=== PATIENT | male | born 1960 | race Caucasian/White ===

== ENCOUNTER 2021-01-30 09:21 | Outpatient (CLI) | payer OTHER, SELFPAY ==
[2021-01-30 10:06] LABS: Hemoglobin A1C 9.1 % (<5.7)
[2021-01-30 10:28] LABS: Prostate Specific Antigen 0.6 ng/mL (< OR = 4.0)
[2021-02-05 09:08] LABS: Testosterone Free 74.9 pg/mL (35.0-155.0); Testosterone Total 262 ng/dL (250-1100)
== END 2021-01-30 09:22 | disposition home or self-care (01) ==
PROVIDERS: PCP Family Medicine; Visit Provider Nurse Practitioner Family
DX: Z12.5 Encounter for screening for malignant neoplasm of prostate (principal); R73.09 Other abnormal glucose; E34.9 Endocrine disorder, unspecified
CPT/HCPCS: 36415; 83036; 84153; 84402; 84403

== ENCOUNTER 2022-03-09 09:16 | Outpatient (CLI) | payer OTHER, SELFPAY ==
[2022-03-09 10:05] LABS: Hematocrit 43.7 % (42.0-52.0); Hemoglobin 14.8 g/dL (14.0-18.0); Mean Corpuscular HGB Conc 33.9 g/dl (32-36); Mean Corpuscular Hemoglobin 29.5 pg (26-34); Mean Corpuscular Volume 87.1 fl (80-100); Platelet Count Result 158 k/mm3 (150-375); Red Blood Count 5.02 M/mm3 (4.6-6.20); Red Cell Distribution Width 12.9 % (11.5-14.5); White Blood Count 5.4 K/mm3 (4.5-10.0)
[2022-03-09 10:18] LABS: Hemoglobin A1C 7.7 % (<5.7)
[2022-03-09 10:19] LABS: Alanine Aminotransferase 44 U/L (6-50); Albumin Level 4.5 g/dL (3.5-5.1); Alkaline Phosphatase 68 U/L (38-126); Anion Gap 10 mmol/L (8-16); Aspartate Amino Transferase 30 U/L (17-59); Bilirubin,Total 0.8 mg/dL (0.2-1.3); Blood Urea Nitrogen 13 mg/dL (9-20); Calcium 9.6 mg/dL (8.4-10.2); Carbon Dioxide 25 mmol/L (22-30); Chloride 101 mmol/L (98-107); Cholesterol 154 mg/dL (0-200); Estimated Glomerular Filt Rate > 60; Glucose 170 mg/dL (65-110); HDL Direct 33 mg/dL; Potassium 4.1 mmol/L (3.4-5.0); Sodium 136 mmol/L (137-145); Triglycerides 375 mg/dL (<150)
[2022-03-09 10:30] LABS: LDL Cholesterol Direct 54 mg/dL
[2022-03-09 10:51] LABS: Prostate Specific Antigen 0.5 ng/mL (< OR = 4.0)
== END 2022-03-09 09:17 | disposition home or self-care (01) ==
PROVIDERS: PCP Family Medicine; Visit Provider Nurse Practitioner Family
DX: E11.9 Type 2 diabetes mellitus without complications (principal); Z12.5 Encounter for screening for malignant neoplasm of prostate; Z13.29 Encounter for screening for other suspected endocrine disorder; E78.5 Hyperlipidemia, unspecified
CPT/HCPCS: 36415; 80053; 80061; 83036; 84153; 84443; 85027; G0103

== ENCOUNTER 2025-02-15 14:01 | Outpatient (CLI) | payer OTHER, SELFPAY ==
--- OUTSIDE RECORDS SUMMARY | 2025-02-15 14:18 | XMS_ITS | Encounter Summary ---
Author Organization [facility] Address [address] [place] [address] Care Team Providers Care In Classroom Tutor Name Role Phone Gonzalez Kumar MD Unavailable [phone] Renetta Franco NP Primary Care Provider [phone] Encounter Details Date Type Department Care Team (Late st Contact Info) Description 03/12/2022 Abstract [facility] [address] Justina Crowell MA Social History Tobacco Use Types Packs/Day Years Used Date Smoking Tobacco: Never Smokeless Tobacco: Never Alcohol Use Standard Drinks/Week Comments Yes 0 (1 standard drink = 0.6 oz pur e alcohol) occas. AUDIT-C Answer Date Recorded Frequency of Alcohol Consumption Monthly or less 09/14/2019 Average Number of Drinks 1 or 2 020 Frequency of Binge Drinking Never 09/02 PHQ-2 Answer Date Recorded PHQ-2 Score - If the patient scores above 3, please move on to questions 3-9 0 03/13/2021 Sex and Gender Information Value Date Recorded Sex Assigned at Male 09/14/2019 4:17 PM WILDERNESS GUIDE Legal Sex Male 9:27 AM CDT Gender Identity Male 09/14/2019 4:17 PM WILDERNESS GUIDE Sexual Orientation Straight 09/14/2019 4: 17 PM WILDERNESS GUIDE documented as of this encounter Plan of Treatment Upcoming Encounters Date Type Department Care Team (Late st Contact Info) Description 11/09/2025 10:15 AM CDT Office Visit [facility] [address] [place] [phone] Eric Goss MD Three [facility]. [facility] [address] [place] [address] documented as of this encounter Procedures Procedure Name Priority Date/Time Associated Diagnosis Comments COMPREHENSIVE METABOLIC PANEL Routine 11/01/2024 LIPID PANEL Routine 11/01/2024 CBC, MANUAL DIFF Routine 11/01/2024 THYROID STIM HORMONE TSH Routine 11/01/2024 CBC (OUTSIDE LAB) Routine 03/09/2022 COMPREHENSIVE METABOLIC PANEL Routine 03/09/2022 LIPID PANEL Routine 03/09/2022 HEMOGLOBIN, GLYCOSYLATED Routine 03/09/2022 THYROID STIM HORMONE TSH Routine 03/09/2022 documented in this encounter Results * COMPREHENSIVE METABOLIC PANEL (11/01/2024) Pathologist [facility] SODIUM S/P/B 138 GLUCOSE 130 mg/dL AST 21 BUN 19 CREATININE S/P/B 0.93 0.7 - 1.3 CALCIUM S/P/B 10.0 POTASSIUM S/P/B 4.2 CHLORIDE S/P/B 104 ALT 38 GFR ESTIMATE 92 us Default History Genericprovider LABORATORY Edited Result - Final * LIPID PANEL (11/01/2024) Pathologist [facility] CHOLESTEROL 163 TRIGLYCERIDES 586 HDL 33 NON HDL CHOLESTEROL 130 us Default History Genericprovider LABORATORY Edited Result - Final * CBC, MANUAL DIFF (11/01/2024) Pathologist [facility] WBC 6.0 HGB 15.6 HCT 46.6 PLT 193 us Default History Genericprovider LABORATORY Edited Result - Final * THYROID STIM HORMONE TSH (11/01/2024) TSH 4.31 Default History Genericprovider LABORATORY Edited Result - Final * HEMOGLOBIN, GLYCOSYLATED (03/09/2022) Pathologist [facility] HGB A1C 7.7 % 03/09/2022 us Doc [facility] LABORATORY Final Result * CBC (OUTSIDE LAB) (03/09/2022) Pathologist [facility] WBC 5.4 HGB 14.8 HCT 43.7 PLT 158 03/09/2022 us Doc [facility] Abstract LAB-OUTSIDE/ABSTRACTED Final Result * THYROID STIM HORMONE, TSH (03/09/2022) Pathologist [facility] TSH 2.450 03/09/2022 us Doc [facility] LABORATORY Edited Resul t - Final * LIPID PANEL (03/09/2022) Pathologist [facility] CHOLESTEROL 154 HDL 33 TRIGLYCERIDES 375 DIRECT LDL 54 03/09/2022 us Doc [facility] LABORATORY Final Result * COMPREHENSIVE METABOLIC PANEL (03/09/2022) Pathologist [facility] SODIUM S/P/B 136 POTASSIUM S/P/B 4.1 CO2 25 CHLORIDE S/P/B 101 GLUCOSE 170 mg/dL CALCIUM S/P/B 9.6 BUN 13 CREATININE S/P/B 1.0 0.7 - 1.3 EGFR NON-AFR. AMER. >60 <=90 ALKALINE PHOSPHATASE S/P/B 68 ALT 44 AST 30 BILIRUBIN TOTAL S/P/B 0.8 ALBUMIN S/P/B 4.5 3.5 - 5.0 TOTAL PROTEIN S/P/B 7.0 03/09/2022 us Doc [facility] LABORATORY Edited Resul t - Final documented in this encounter Visit Diagnoses Not on filedocumented in this encounter Additional Health Concerns Assessment Noted Time PHQ-9 Depression Total Score: 0 03/13/20 21 10:55 AM CDT documented as of this encounter Care Teams In Classroom Tutor Relationship Specialty Start Date End Date Renetta Franco NP [address] [place] [address] PCP - General NURSE PRACTITIONER 02/11/21 Gonzalez Kumar MD [address] [address] [place] [employer] Gaming Worker CARDIOVASCULAR DISEASE 08/02/16 documented as of this encounter
--- OUTSIDE RECORDS SUMMARY | 2025-02-15 14:18 | XMS_ITS | Encounter Summary ---
Author Organization [facility] Address [address] [place] [address] Care Team Providers Care Youth Leader Name Role Phone Gonzalez Kumar MD Unavailable [phone] Renetta Franco NP Primary Care Provider [phone] Encounter Details Date Type Department Care Team (Late st Contact Info) Description 03/18/2021 Hospital Orders Only [facility] Scale [place], [place] [id number] Eric Goss MD Three [facility]. [facility] [address] [place], [place] [id number] Social History Tobacco Use Types Packs/Day Years Used Date Smoking Tobacco: Never Smokeless Tobacco: Never Alcohol Use Standard Drinks/Week Comments Yes 0 (1 standard drink = 0.6 oz pur e alcohol) AUDIT-C Answer Date Recorded Frequency of Alcohol Consumption Monthly or less 09/14/2019 Average Number of Drinks 1 or 2 020 Frequency of Binge Drinking Never 09/02 PHQ-2 Answer Date Recorded PHQ-2 Score - If the patient scores above 3, please move on to questions 3-9 0 03/13/2021 Sex and Gender Information Value Date Recorded Sex Assigned at Male 09/14/2019 4:17 PM FOOD PREPARER Legal Sex Male 9:27 AM CDT Gender Identity Male 09/14/2019 4:17 PM FOOD PREPARER Sexual Orientation Straight 09/14/2019 4: 17 PM FOOD PREPARER COVID-19 Exposure Response Date Recorded In the last month, have you been in contact with someone who was confirmed or suspected to have Coronavirus / COVID-19? No / Unsure 03/19/2021 8:18 AM CDT documented as of this encounter Functional Status * Calculated C-SSRS Risk Score (Lifetime/Recent) Answer Date of Assessment Author Status No Risk Indicated 03/19/2021 9:15 AM CDT Pilo Bullock Active * Braxton Suicide Severity Rating Scale (Screener/Recent Self-Report) Question Answer Date of Assessment Author Status 1. Wish to be (Past 1 Month) No 03/19/2021 9:15 AM CDT Dinh Bullock Active 2. Non-Specific Active Suicidal Thoughts (Past 1 Month) No 03/19/2021 9:15 AM CDT Dinh Bullock Active 6. Suicidal Behavior (Lifetime) No 03/19/2021 9:15 AM CDT Dinh Bullock Active documented as of this encounter Plan of Treatment Upcoming Encounters Date Type Department Care Team (Late st Contact Info) Description 11/09/2025 10:15 AM CDT Office Visit [facility] [address] [place] [phone] Eric Goss MD [facility]. [facility] [address] [place], [place] [phone] documented as of this encounter Visit Diagnoses Not on filedocumented in this encounter Additional Health Concerns Assessment Noted Time PHQ-9 Depression Total Score: 0 03/13/20 21 10:55 AM CDT documented as of this encounter Care Teams Youth Leader Relationship Specialty Start Date End Date Renetta Franco NP [address] [address] PCP - General NURSE PRACTITIONER 02/11/21 Gonzalez Kumar MD Three [facility]. [facility] [address] [place], [place] [id number] Sourav Harness Repairer CARDIOVASCULAR DISEASE 08/02/16 documented as of this encounter
--- OUTSIDE RECORDS SUMMARY | 2025-02-15 14:18 | XMS_ITS | Clinical Summary ---
Author Organization [facility] Address [facility] [place] [address] Care Team Providers Care Maid Cleaning Cooking Name Role Phone Gonzalez Kumar MD Unavailable [phone] Renetta Franco NP Primary Care Provider [phone] Allergies No known active allergies Medications metFORMIN ER 500 MG 24 hr tablet Take 1 tablet (500 mg total) by mouth 2 (two) times a day. Active aspirin EC (ECOTRIN) 81 MG tablet Take 1 tablet (81 mg total) by mouth daily. Active JARDIANCE 25 MG tablet Take 1 tablet (25 mg total) by mouth daily. 3 Active ketoconazole (NIZORAL) 2 % shampoo Apply topically twice a week. 4 Active sildenafil (REVATIO) 20 MG tablet TAKE ONE TABLET BY MOUTH ONCE DAILY NEEDED 10 tablet 3 4 Active atorvastatin (LIPITOR) 80 MG tablet Take 1 tablet (80 mg total) by mouth nightly at bedtime. 90 tablet 3 5 Active Active Problems Problem Noted Date Diagnosed Date Type 2 diabetes mellitus wit hout complication, with long-term current use of insulin ([facility]) 11/03/2024 Assessment & Plan (11/03/2024 12:10 PM CDT): Recent A1c 7.2. He is currently on metformin and Jardiance. Encourage continued glycemic control as diabetes is a cardiovascular disease risk factor. Primary hypertension 03/26/2023 Assessment & Plan (11/03/2024 12:08 PM CDT): Blood pressure is well-controlled in office. He is not currently on any antihypertensive therapy at this time. Previously on beta-karen therapy, although stopped secondary to erectile dysfunction. Assessment & Plan (10/29/2023 3:40 PM CDT): His blood pressure is well-controlled and he is currently not on antihypertensive therapy. Continue to monitor. Erectile dysfunction due to arterial insufficien cy 09/18/2022 Assessment & Plan (10/29/2023 3:40 PM CDT): He has been having some erectile dysfunction. Phosphodiesterase inhibitors have not helped. I asked him to try sildenafil 40 mg as needed or have him consider urology consult. Assessment & Plan (09/18/2022 10:58 AM DISK AND TAPE MACHINE TENDER): He has been having some erectile dysfunction. I have asked him to stop beta- karen therapy to see if that improves his symptoms. If it does not, I have prescribed him phosphodiesterase inhibitors. I educated him that he should not use nitrates in addition to phosphodiesterase inhibitors. Coronary artery disease involving grayling coronar y artery 03/27/2021 Assessment & Plan (11/03/2024 12:07 PM CDT): He is not having angina. He is status post PCI to LAD. Continue medical management with aspirin and atorvastatin. Assessment & Plan (10/29/2023 3:39 PM CDT): He is not having angina. He is status post PCI to LAD. I told him he can stop clopidogrel. Continue aspirin, atorvastatin. Beta-karen therapy was stopped secondary to erectile dysfunction. Assessment & Plan (09/18/2022 10:57 AM DISK AND TAPE MACHINE TENDER): He is not having angina. He is status post PCI to LAD. Continue dual antiplatelet therapy. Assessment & Plan (03/20/2022 11:44 AM CDT): Coronary artery disease. Stable and asymptomatic. Discussed with the patient the importance of risk factor modification including regular moderate exercise and diet. Continue asa and plavix, atorva, and metoprolol Assessment & Plan (09/19/2021 10:18 AM DISK AND TAPE MACHINE TENDER): Assessment: He is not having angina Plan: : Diagnostic Testing: none Antiplatelet therapy: continue Plavix Aspirin Dose: 81mg Antianginal medications: continue metoprolol Lipid lowering medications: continue atorvastatin Lifestyle modifications: continue current medications and continue current healthy lifestyle patterns Assessment & Plan (03/27/2021 3:36 PM CDT): [facility] 03/19/21 1. 99% stenosis in proximal LAD 2. Successful PCI to LAD with Biotronik Orsiro 3.5 x 26 mm drug eluting stent 3. 80% stenosis in right coronary artery 4. Normal left ventricular function TTE ordered to assess LVEF Continue with MMT = ASA 81 plavix 75mg daily and atorvastatin 80mg daily Mixed hyperlipidemia 03/27/2021 Assessment & Plan (11/03/2024 12:09 PM CDT): Most recent lipid panel shows elevated triglycerides, uncontrolled with total cholesterol. LDL unable to be calculated due to triglyceride level. Continue current regimen with atorvastatin. He is no longer on fenofibrate. Assessment & Plan (10/29/2023 3:39 PM CDT): Most recent lipid panel shows elevated triglycerides, but controlled LDL. Recent trial data suggest that there may not be added benefit to lowering triglycerides. I am fine with him stopping triglyceride and continuing statin therapy. Assessment & Plan (09/18/2022 10:56 AM DISK AND TAPE MACHINE TENDER): Recent trial data suggest that there may not be added benefit to lowering triglycerides. I am fine with him stopping triglyceride and continuing statin therapy. Assessment & Plan (03/20/2022 11:42 AM CDT): Component 03/09/22 CHOLESTEROL 154 HDL 33 TRIGLYCERIDE 375 DIRECT LDL 54 LDL At goal although tri elevated Continue atorva and add tricor 145mg daily Repeat lipid alt and ck 2 months Assessment & Plan (09/19/2021 10:18 AM DISK AND TAPE MACHINE TENDER): Assessment: combined hyperlipidemia LDL result meets goal Plan: : Diagnostic Testing: none Lipid lowering medications: continue atorvastatin Lifestyle modifications: diet and regular aerobic exercise Assessment & Plan (03/27/2021 3:40 PM CDT): CHOLESTEROL <200 MG/DL 281High TRIGLYCERIDE <150 MG/DL 827High Comment: REFLEXED DIRECT LDL DUE TO TRIG >400. HDL >40.0 MG/DL 31Low LDL (CALCULATED) <100 MG/DL NOT CALCULATED Comment: TRIGLYCERIDE >400 INVALIDATES FRACTIONATION. NON HDL CHOLESTEROL <130 MG/DL 250High CHOL/HDL RATIO 0.0 - 4.5 9.1High Lipid pnael obtained 03/19/21 - severely uncontrolled - decision to start on atorva 80mg daily and recheck in 6 weeks - Vasovagal syncope 03/19/2021 Assessment & Plan (03/19/2021 10:45 AM CDT): The episode of syncope sounds vasovagal in nature in the stress test. Her last example was technetium 99 metastable echo and a thallium 201 because it got lower extreme for toxic 2 okay she will do quite well by that 0.3 cm of LAD rubidium 82 has a much more powerful varicosities got positron's Cardiac enzymes elevated 03/19/2021 Assessment & Plan (03/19/2021 10:46 AM CDT): Given that he has positive cardiac enzymes, I am recommending that he have a cardiac catheterization, because I do not think that is the elevated cardiac enzymes to be too high after vasovagal syncope. I have discussed the procedure in detail including radial or femoral access, coronary angiography and possible stent placement. I have discussed the risks and benefits of cardiac catheterization that include but are not limited to: bleeding, infection, cerebrovascular accident (<1%), myocardial infarction (<1%) and (< 1%). Precordial chest pain 03/07/2021 Assessment & Plan (03/07/2021 2:42 PM CDT): His ekg and cardiac enzymes are within normal limits. We will plan for exercise nuclear stress testing as an outpatient. Pes cavus 03/23/2017 Pes equinus, acquired 03/23/2017 Plantar fasciitis 03/23/2017 Contact dermatitis 01/17/2013 Resolved Problems Problem Noted Date Diagnosed Date Resolved Date Encounter for preventive health examination 01/17/2013 04/12/2020 Encounters Date Type Department Care Team Description 11/30/2024 Telephone [facility] THREE [facility], [address] [address] Eric Goss MD Refill Request (ATORVASTATIN ) from Last 3 Months Immunizations Immunization Administration Dates Next Due Flublok (Quadrivalent) 04/18/2020 Hepatitis B (Generic: Adult) 10/03/2001,05/30/20,04/25/2001 Influenza Adult (Generic) 05/15/2023,05/01/2022 Shingrix 07/30/2018,04/15/2018 Tdap (Generic) 04/15/2018 Family History Medical History Relation Comments Alzheimers Father Diabetes Father Heart Disease Father Diabetes Mother Heart Disease Paternal Grandfather Relation Status Comments Father Maternal Grandfather Maternal Grandmother Mother Paternal Grandfather Paternal Grandmother Social History Tobacco Use Types Packs/Day Years Used Date Smoking Tobacco: Never Smokeless Tobacco: Never Tobacco Cessation:Counseling Given: No Alcohol Use Standard Drinks/Week Comments Yes 0 (1 standard drink = 0.6 oz pur e alcohol) occas. AUDIT-C Answer Date Recorded Frequency of Alcohol Consumption Monthly or less 09/14/2019 Average Number of Drinks 1 or 2 020 Frequency of Binge Drinking Never 09/02 PHQ-2 Answer Date Recorded Patient Health Questionnaire-2 Score 0 02/07/2024 Sex and Gender Information Value Date Recorded Sex Assigned at Male 09/14/2019 4:17 PM DISK AND TAPE MACHINE TENDER Legal Sex Male 9:27 AM CDT Gender Identity Male 09/14/2019 4:17 PM DISK AND TAPE MACHINE TENDER Sexual Orientation Straight 09/14/2019 4: 17 PM DISK AND TAPE MACHINE TENDER Last Filed Vital Signs Vital Sign Reading Time Taken Comments Blood Pressure 130/70 11/03/2024 11:38 AM CDT Pulse 88 11/03/2024 11:38 AM CDT Temperature 36.1 C (97 F) 03/22/2021 1:49 AM CDT Respiratory Rate 19 03/22/2021 4:50 AM CDT Oxygen Saturation 97% 02/07/2024 10:20 AM CDT Inhaled Oxygen Concentration - - Weight 86.6 kg (191 lb) 11/03/2024 11:38 AM CDT Height 177.8 cm (5' 10) 11/03/2024 11:38 AM CDT Body Mass Index 27.41 11/03/2024 11:38 AM CDT Plan of Treatment Upcoming Encounters Date Type Department Care Team (Late st Contact Info) Description 11/09/2025 10:15 AM CDT [facility] [address] [place] [address] Eric Goss MD [facility]. [address] [address] Health Maintenance Due Date Last Done Comments Colorectal Cancer Screening Colonoscopy (10 Years) 1961 Kidney Health Evaluation 1961 Annual Physical 1964 Diabetes: Retinopathy Eye Exam 1979 Hepatitis C 1979 Pneumococcal Vaccine: 50+ Years (1 of 2 - PCV) 1980 RSV Immunization or 60+ Years (1 - Risk 60-74 years 1-dose series) 2021 COVID-19 Vaccine ( season) 2024 10/31/2020, 10/10/2020 Hemoglobin A1C 07/01/2024 12/30/2023, 09/02, 03/18/2023, Additional history exists PHQ-2 (Physician Climax) 08/02/2024 02/07/2024 ASCVD LDL 09/16/2024 09/16/2023, 03/02, 11/26/2022, Additional history exists Lipid Panel 11/01/2025 11/01/2024, 09/02, 03/18/2023, Additional history exists DTaP, Tdap and Td Vaccines (2 - Td or Tdap) 04/15/2028 04/15/2018 Zoster Vaccines Completed 07/30/2018, 04/15/2018 Meningococcal B Vaccine Aged Out No l onger eligible based on patient's age to complete this topic Meningococcal Vaccine Aged Out No maritza dorita eligible based on patient's age to complete this topic RSV Immunizations Under 20 Months Aged Out No longer eligible based on patient's age to complete this topic Procedures Procedure Name Priority Date/Time Associated Diagnosis Comments LIPID PANEL Routine 11/01/2024 HEMOGLOBIN, GLYCOSYLATED Routine 12/30/2023 10:43 AM CDT LIPID PANEL Routine 09/16/2023 7:24 AM DISK AND TAPE MACHINE TENDER from Last 3 Months or Most Recently Relevant to Health Maintenance Results * LIPID PANEL (11/01/2024) Only the most recent of2 resultswithin the time period is included. CHOLESTEROL 163 TRIGLYCERIDES 586 HDL 33 NON HDL CHOLESTEROL 130 us Default History Genericprovider LABORATORY Edited Result - Final * (ABNORMAL) HEMOGLOBIN, GLYCOSYLATED (12/30/2023 10:43 AM CDT) HGB A1C 7.0(H) <5.7 % 12/30/2023 11:47 AM CDT [facility] Comment: INCREASED RISK OF DIABETES <5.7% NON-DIABETES 5.7-6.4% INCREASED RISK FOR FUTURE DIABETES > OR = 6.5 CONSISTENT WITH DIABETES STANDARDS OF MEDICAL CARE IN DIABETES-2010 DIABETES CARE, 33(SUPP 1): S1-S61,2009 ESTIMATED AVG GLUCOSE 154 mg/dL 12/30/2023 11:47 AM CDT [facility] 12/30/2023 10:4 3 AM CDT Isaac Quinones MD LABORATORY Final Result [facility] [address] [place] [id number], [place] [phone] from Last 3 Months or Most Recently Relevant to Health Maintenance Insurance [facility] Advance Directives Documents on File Type Date Recorded Patient Cargo Service Agent Expl anation Power of Cryptologic Support Specialist 03/19/2021 8:22 AM POWER OF ATTY * Full Code (Latest Code Status on File) Date Activated Date Inactivated Comments 03/19/2021 12:20 PM 03/19/2021 5:46 PM Care Teams Maid Cleaning Cooking Relationship Specialty Start Date End Date Renetta Franco NP [address] [place] [address] PCP - General NURSE PRACTITIONER 02/11/21 Gonzalez Kumar MD [address] [address] Sourav Relay Technician CARDIOVASCULAR DISEASE 08/02/16
[2025-02-18 12:07] LABS: Free Testosterone (Direct) 8.8 pg/mL (6.6-18.1)
== END 2025-02-15 14:02 | disposition home or self-care (01) ==
PROVIDERS: PCP Family Medicine; Visit Provider Nurse Practitioner Family
DX: E34.9 Endocrine disorder, unspecified (principal)
CPT/HCPCS: 84402

== ENCOUNTER 2025-07-30 10:34 | Outpatient (CLI) | payer OTHER, SELFPAY ==
[2025-07-30 10:50] LABS: Hematocrit 45.6 % (42.0-52.0); Hemoglobin 15.2 g/dL (14.0-18.0)
--- OUTSIDE RECORDS SUMMARY | 2025-07-30 11:05 | XMS_ITS | Encounter Summary ---
Author Organization [facility] Address [address] [place] [address] Care Team Providers Care Charter And Tour Bus Driver Name Role Phone Gonzalez Kumar MD Unavailable [phone] Renetta Franco NP Primary Care Provider [phone] Encounter Details Date Type Department Care Team (Late st Contact Info) Description 03/12/2022 Abstract [facility] [address] Justina Crowell MA Social History Tobacco Use [...] Sex Assigned at Male 09/14/2019 4:17 PM PSYCHODRAMATIST Legal Sex Male 9:27 AM CDT Gender Identity Male 09/14/2019 4:17 PM PSYCHODRAMATIST Sexual Orientation Straight 09/14/2019 4: 17 PM PSYCHODRAMATIST documented as of this encounter Plan of Treatment Upcoming Encounters Date Type Department Care Team (Late st Contact Info) Description 11/09/2025 10:15 AM CDT Office Visit [facility] [address] [place] [address] Eric Goss MD Three [facility]. [facility] [address] [place] [address] documented as of this encounter Procedures Procedure Name Priority Date/Time Associated Diagnosis Comments COMPREHENSIVE METABOLIC PANEL Routine 11/01/2024 LIPID PANEL Routine 11/01/2024 CBC, MANUAL DIFF Routine 11/01/2024 THYROID STIM HORMONE TSH Routine 11/01/2024 CBC (OUTSIDE LAB) Routine 03/09/2022 COMPREHENSIVE METABOLIC PANEL Routine 03/09/2022 LIPID PANEL Routine 03/09/2022 HEMOGLOBIN GLYCOSYLATED A1C Routine 03/09/2022 THYROID STIM HORMONE TSH Routine 03/09/2022 documented in this encounter Results * COMPREHENSIVE METABOLIC PANEL (11/01/2024) Pathologist [facility] SODIUM S/P/B 138 GLUCOSE 130 mg/dL AST 21 BUN 19 CREATININE S/P/B 0.93 0.7 - 1.3 CALCIUM S/P/B 10.0 POTASSIUM S/P/B 4.2 CHLORIDE S/P/B 104 ALT 38 GFR ESTIMATE 92 us Default History Genericprovider LABORATORY Edited Result - Final * LIPID PANEL (11/01/2024) Pathologist [facility] CHOLESTEROL 163 TRIGLYCERIDES 586 HDL 33 NON HDL CHOLESTEROL 130 us Default History Genericprovider LABORATORY Edited Result - Final * CBC, MANUAL DIFF (11/01/2024) Pathologist [facility] WBC 6.0 HGB 15.6 HCT 46.6 PLT 193 us Default History Genericprovider LABORATORY Edited Result - Final * THYROID STIM HORMONE TSH (11/01/2024) TSH 4.31 Default History Genericprovider LABORATORY Edited Result - Final * HEMOGLOBIN, GLYCOSYLATED (03/09/2022) Pathologist [facility] HGB A1C 7.7 % 03/09/2022 us Doc [facility] LABORAT[facility] Final Result * CBC (OUTSIDE LAB) (03/09/2022) Pathologist [facility] WBC 5.4 HGB 14.8 HCT 43.7 PLT 158 03/09/2022 us Doc [facility] LAB-OUTSIDE/ABSTRACTED Final Result * THYROID STIM HORMONE, TSH (03/09/2022) Pathologist [facility] TSH 2.450 03/09/2022 us Doc [facility] LABORATORY Edited Resul t - Final * LIPID PANEL (03/09/2022) Pathologist [facility] CHOLESTEROL 154 HDL 33 TRIGLYCERIDES 375 DIRECT LDL 54 03/09/2022 us Doc [facility]ORATORY Final Result * COMPREHENSIVE METABOLIC PANEL (03/09/2022) Pathologist [facility] SODIUM S/P/B 136 POTASSIUM S/P/B 4.1 CO2 [...] documented as of this encounter Care Teams Charter And Tour Bus Driver Relationship Specialty Start Date End Date Renetta Franco NP [address] [place] [address] PCP - General NURSE PRACTITIONER 02/11/21 Gonzalez Kumar MD [address] [address] [place] Building Associate CARDIOVASCULAR DISEASE 08/02/16 documented as of this encounter
--- OUTSIDE RECORDS SUMMARY | 2025-07-30 11:05 | XMS_ITS | Clinical Summary ---
Author Organization [facility] Address [address] [place] [address] Care Team Providers Care Truck Leasing Manager Name Role Phone Gonzalez Kumar MD Unavailable [phone] Renetta Franco NP Primary Care Provider [phone] Allergies No known active allergies Medications metFORMIN [...] complication, with long-term current use of insulin 11/03/2024 Assessment & Plan (11/03/2024 12:10 PM [...] consult. Assessment & Plan (09/18/2022 10:58 AM CIVIL ENGINEER'S AIDE): He has been having some erectile dysfunction. I have asked him to stop beta- karen therapy to see if that improves his symptoms. If it does not, I have prescribed him phosphodiesterase inhibitors. I educated him that he should not use nitrates in addition to phosphodiesterase inhibitors. Coronary artery disease involving [place] coronar y artery 03/27/2021 Assessment & Plan [...] dysfunction. Assessment & Plan (09/18/2022 10:57 AM CIVIL ENGINEER'S AIDE): He is not having angina. He is status post PCI to LAD. Continue dual antiplatelet therapy. Assessment & Plan (03/20/2022 11:44 AM CDT): Coronary artery disease. Stable and asymptomatic. Discussed with the patient the importance of risk factor modification including regular moderate exercise and diet. Continue asa and plavix, atorva, and metoprolol Assessment & Plan (09/19/2021 10:18 AM CIVIL ENGINEER'S AIDE): Assessment: He is not having angina Plan: : Diagnostic Testing: none Antiplatelet therapy: continue Plavix Aspirin Dose: 81mg Antianginal medications: continue metoprolol Lipid lowering medications: continue atorvastatin Lifestyle modifications: continue current medications and continue current healthy lifestyle patterns Assessment & Plan (03/27/2021 3:36 PM CDT): [facility] 03/19/21 1. 99% stenosis in proximal LAD [...] therapy. Assessment & Plan (09/18/2022 10:56 AM CIVIL ENGINEER'S AIDE): Recent trial data suggest that there may [...] months Assessment & Plan (09/19/2021 10:18 AM CIVIL ENGINEER'S AIDE): Assessment: combined hyperlipidemia LDL result meets goal [...] Encounter for preventive health examination 01/17/2013 04/12/2020 Immunizations Immunization Administration Dates Next Due [place] [...] Sex Assigned at Male 09/14/2019 4:17 PM CIVIL ENGINEER'S AIDE Legal Sex Male 9:27 AM CDT Gender Identity Male 09/14/2019 4:17 PM CIVIL ENGINEER'S AIDE Sexual Orientation Straight 09/14/2019 4: 17 PM CIVIL ENGINEER'S AIDE Last Filed Vital Signs Vital Sign Reading [...] Description 11/09/2025 10:15 AM CDT [facility] [address] [place] [id number] Eric Goss MD [facility]. [facility] [address] [place] [address] Health Maintenance Due Date Last Done Comments Colorectal Cancer Screening Colonoscopy (10 Years) 1961 Kidney Health Evaluation 1961 Annual Physical 1964 Diabetes: Retinopathy Eye Exam 1979 Hepatitis C 1979 Pneumococcal Vaccine: 50+ Years (1 of 2 - PCV) 1980 RSV Immunization or 60+ Years (1 - Risk 60-74 years 1-dose series) 2021 Hemoglobin A1C 07/01/2024 12/30/2023, 09/02, 03/18/2023, Additional history exists PHQ-2 (Physician [place]) 08/02/2024 02/07/2024 ASCVD LDL 09/16/2024 09/16/2023, 03/02, 11/26/2022, Additional history exists COVID-19 Vaccine ( season) 2025 10/31/2020, 10/10/2020 Influenza Adult (#1) 2025 05/15/2023, 05/01/2022, 04/18/2020 Lipid Panel 11/01/2025 11/01/2024, 09/02, 03/18/2023, Additional history exists DTaP, Tdap and Td Vaccines (2 - Td or Tdap) 04/15/2028 04/15/2018 Zoster Vaccines Completed 07/30/2018, 04/15/2018 Hepatitis A Vaccines Aged Out No long er eligible based on patient's age to complete this topic Meningococcal B Vaccine Aged Out No l [...] CDT LIPID PANEL Routine 09/16/2023 7:24 AM CIVIL ENGINEER'S AIDE from Last 3 Months or Most Recently Relevant to Health Maintenance Results * LIPID PANEL (11/01/2024) Only the most recent of2 resultswithin the time period is included. CHOLESTEROL 163 TRIGLYCERIDES 586 HDL 33 NON HDL CHOLESTEROL 130 us Default History Genericprovider LABORATORY Edited Result - Final * (ABNORMAL) HEMOGLOBIN, GLYCOSYLATED (12/30/2023 10:43 AM CDT) HGB A1C 7.0(H) <5.7 % 12/30/2023 11:47 AM CDT [facility] Comment: INCREASED RISK OF DIABETES <5.7% NON-DIABETES 5.7-6.4% INCREASED RISK FOR FUTURE DIABETES > OR = 6.5 CONSISTENT WITH DIABETES STANDARDS OF MEDICAL CARE IN DIABETES-2010 DIABETES CARE, 33(SUPP 1): S1-S61,2010 ESTIMATED AVG GLUCOSE 154 mg/dL 12/30/2023 11:47 AM CDT [facility] 12/30/2023 10:4 3 AM CDT Isaac Quinones MD LABORATORY Final Result [facility] [id number] [place] [address], [place] [phone] from Last 3 Months or Most Recently Relevant to Health Maintenance Insurance [facility] Advance Directives Documents on File Type Date Recorded Patient Right Of Way Agent Expl anation Power of Gasket Supervisor 03/19/2021 8:22 AM POWER OF ATTY * Full Code (Latest Code Status on File) Date Activated Date Inactivated Comments 03/19/2021 12:20 PM 03/19/2021 5:46 PM Care Teams Truck Leasing Manager Relationship Specialty Start Date End Date Renetta Franco NP [address] [place] [address] PCP - General NURSE PRACTITIONER 02/11/21 Gonzalez Kumar MD [facility]. [address] [address] [employer] Project Manager CARDIOVASCULAR DISEASE 08/02/16
--- OUTSIDE RECORDS SUMMARY | 2025-07-30 11:05 | XMS_ITS | Encounter Summary ---
Author Organization [facility] Address [address] [place] [id number] Care Team Providers Care Billing Control Clerk Name Role Phone Gonzalez Kumar MD Unavailable [phone] Renetta Franco NP Primary Care Provider [phone] Encounter Details Date Type Department Care Team (Late st Contact Info) Description 03/18/2021 Hospital Orders Only [facility] Audiometric Technician [place], [place] [id number] Eric Goss MD [facility]. [facility] [address] [place], [place] [id number] Social History Tobacco Use Types Packs/Day Years [...] Sex Assigned at Male 09/14/2019 4:17 PM CAN BANDER OPERATOR Legal Sex Male 9:27 AM CDT Gender Identity Male 09/14/2019 4:17 PM CAN BANDER OPERATOR Sexual Orientation Straight 09/14/2019 4: 17 PM CAN BANDER OPERATOR COVID-19 Exposure Response Date Recorded In the last month, have you been in contact with someone who was confirmed or suspected to have Coronavirus / COVID-19? No / Unsure 03/19/2021 8:18 AM CDT documented as of this encounter Plan of Treatment Upcoming Encounters Date Type Department Care Team (Late st Contact Info) Description 11/09/2025 10:15 AM CDT Office Visit [facility] [address] [place] [address] Eric Goss MD [facility]. [facility] [address] [place], [place] [id number] documented as of this encounter Visit Diagnoses Not on filedocumented in this encounter Additional Health Concerns Assessment Noted Time PHQ-9 Depression Total Score: 0 03/13/20 21 10:55 AM CDT documented as of this encounter Care Teams Billing Control Clerk Relationship Specialty Start Date End Date Renetta Franco NP [address] [place] [address] PCP - General NURSE PRACTITIONER 02/11/21 Gonzalez Kumar MD [facility]. [facility] [address] [place], [place] [phone] [employer] Control Aide CARDIOVASCULAR DISEASE 08/02/16 documented as of this encounter
[2025-07-31 22:07] LABS: Free Testosterone (Direct) 25.8 pg/mL (6.6-18.1)
== END 2025-07-30 10:35 | disposition home or self-care (01) ==
PROVIDERS: PCP Family Medicine; Visit Provider Nurse Practitioner Family
DX: E34.9 Endocrine disorder, unspecified (principal)
CPT/HCPCS: 36415; 84402; 84403; 85014; 85018